=== PATIENT | male | born 1995 | race Two or more races ===

== ENCOUNTER 2021-09-10 15:12 | Emergency (ER) | payer MEDICAID, OTHER ==
[~2021-09-10] VITALS: Ht 180.3 cm; Wt 91.6 kg
[2021-09-10 15:21] VITALS: BP 126/80
--- NOTE | 2021-09-10 15:22 | NUR ---
RASH NOTED TO R SIDE RIB AND STOMACH SINCE 09/07 NOTED SINCE COMING BACK FROM A TRIP. DENIES ANY PAIN. WILL CONTINUE TO MONITOR THE PATIENT.
[2021-09-10] MEDS ORDERED: DESO60CR12 TP (15:29)
--- NOTE | 2021-09-10 15:36 | NUR ---
Patient discharged to home in stable condition. Written and verbal after care instructions given. Patient verbalizes understanding of instruction.
== END 2021-09-10 15:37 | disposition home or self-care (01) ==
LOC: ER 15:17
DX: R21 Rash and other nonspecific skin eruption (principal)